=== PATIENT | male | born 1990 | race Two or more races ===

== ENCOUNTER 2024-09-10 07:57 | Emergency (ER) | payer OTHER ==
[~2024-09-10] VITALS: Ht 175.3 cm; Wt 79.4 kg
[2024-09-10 08:00] VITALS: BP 130/80; TEMP 98; O2SAT 99
[2024-09-10] MEDS: AZITHROMYCIN 250 MG TABLET PO ONE (09:23)
== END 2024-09-10 09:23 | disposition home or self-care (01) ==
LOC: ER 08:01
DX: Z20.811 Contact with and (suspected) exposure to meningococcus (principal)